=== PATIENT | female | born 1995 ===

== ENCOUNTER 2023-04-23 20:48 | Emergency (ER) | payer SELFPAY | END 2023-04-23 22:38 | disposition home or self-care (01) | LOC: DL.ED 20:48 | DX: S09.90XA Unspecified injury of head, initial encounter (principal); Z88.2 Allergy status to sulfonamides; V80.010A Animal-rider injured by fall from or being thrown from horse in noncollision accident, initial encounter | CPT/HCPCS: 70450; 72125; 99282; 99284 ==